=== PATIENT | male | born 1975 | race Caucasian/White ===

== ENCOUNTER 2017-08-11 07:18 | Outpatient (CLI) | payer OTHER ==
[~2017-08-11] VITALS: Ht 152.4 cm; Wt 72.6 kg
[~2017-08-11 07:18] MED LIST: OMEPRAZOLE40 MG
== END 2017-08-11 07:45 | disposition home or self-care (01) ==
LOC: OFIC 805 07:18
DX: H81.13 Benign paroxysmal vertigo, bilateral (principal); M54.2 Cervicalgia; R51 Headache

== ENCOUNTER 2020-01-04 10:41 | Outpatient (CLI) | payer OTHER ==
[2020-01-04] MEDS ORDERED: NEILMED SINUS1 EACH NASAL (11:56)
[2020-01-04] MEDS ORDERED: FLONASE16 GM NASAL (11:56)
[2020-01-04] MEDS ORDERED: MEDROLPACK PO (11:57)
== END 2020-01-04 12:53 | disposition home or self-care (01) ==
LOC: OFIC 805 10:41
PROVIDERS: ATTEND Otolaryngology
DX: J30.89 Other allergic rhinitis (principal); J34.3 Hypertrophy of nasal turbinates; R09.81 Nasal congestion

== ENCOUNTER 2020-01-04 12:57 | Outpatient (CLI) | payer OTHER ==
[~2020-01-04 12:57] MED LIST changes: +FLONASE16 GM NASAL; +MEDROLPACK PO; +NEILMED SINUS1 EACH NASAL
== END 2020-01-04 12:59 | disposition home or self-care (01) ==
LOC: TOM 12:57
PROVIDERS: ATTEND Otolaryngology
DX: J30.89 Other allergic rhinitis (principal); R09.81 Nasal congestion; J34.3 Hypertrophy of nasal turbinates

== ENCOUNTER 2020-01-18 11:55 | Outpatient (CLI) | payer OTHER ==
[~2020-01-18] VITALS: Ht 152.4 cm; Wt 72.6 kg
== END 2020-01-18 13:02 | disposition home or self-care (01) ==
LOC: OFIC 805 11:55
PROVIDERS: ATTEND Otolaryngology
DX: J30.89 Other allergic rhinitis (principal); J34.3 Hypertrophy of nasal turbinates; R09.81 Nasal congestion; J32.8 Other chronic sinusitis

== ENCOUNTER 2020-09-05 12:18 | Emergency (ER) | payer OTHER ==
[~2020-09-05] VITALS: Ht 157.5 cm; Wt 81.6 kg
[2020-09-05] MEDS ORDERED: METOPROLOL TART50 MG PO (12:53)
[2020-09-05] MEDS ORDERED: PRILOSEC OTC20 MG (12:54)
[2020-09-05] MEDS ORDERED: PROMETH-CODEIN 65 ML PO (16:11)
[2020-09-05] MEDS ORDERED: VOLTAREN-XR100 MG PO (16:37)
== END 2020-09-05 17:21 ==
LOC: ER 12:18
DX: R05 Cough (principal); M62.830 Muscle spasm of back

== ENCOUNTER 2020-12-17 08:00 | Outpatient (CLI) | payer OTHER ==
[~2020-12-17 08:00] MED LIST changes: +METOPROLOL TART50 MG PO; +PRILOSEC OTC20 MG; +PROMETH-CODEIN 65 ML PO; +VOLTAREN-XR100 MG PO
== END 2020-12-17 08:10 | disposition home or self-care (01) ==
LOC: PPH VACUNA 08:00
DX: Z23 Encounter for immunization (principal)

== ENCOUNTER 2022-08-03 08:31 | Emergency (ER) | payer OTHER ==
[~2022-08-03] VITALS: Ht 157.5 cm; Wt 83.9 kg
[2022-08-03] MEDS ORDERED: NORVASC10 MG PO (09:16)
[2022-08-03] MEDS ORDERED: BAYER THERAPY325 MG PO (09:16)
[2022-08-03] MEDS ORDERED: COZAAR100 MG PO ×2 (09:16→09:19)
[2022-08-03] MEDS ORDERED: LIPITOR40 MG PO (09:17)
[2022-08-03] MEDS ORDERED: PREVACID30 MG (09:19)
[2022-08-03] MEDS ORDERED: TOPROL XL100 M1 PO (09:19)
[2022-08-03] MEDS ORDERED: LIPITOR20 MG PO (09:20)
== END 2022-08-03 12:13 | disposition home or self-care (01) ==
LOC: ER 08:31
DX: B34.9 Viral infection, unspecified (principal); Z20.822 Contact with and (suspected) exposure to COVID-19